=== PATIENT | female | born 1990 | race Two or more races ===

== ENCOUNTER 2019-06-23 23:19 | Inpatient (IN) | payer MEDICAID ==
[2019-06-24 00:30] VITALS: BP 107/73
[2019-06-24] MEDS ORDERED: LORazepam 1 MG TABLET PO PRN (00:30)
[2019-06-24] MEDS ORDERED: HALOPERIDOL 5 MG TABLET PO PRN (00:30)
[2019-06-24] MEDS ORDERED: ZOLPIDEM TARTRATE 10 MG TABLET PO PRN (00:30)
[2019-06-24 08:09] VITALS: BP 108/72
[2019-06-24] MEDS ORDERED: DiphenhydrAMINE HCL 25 MG CAPSULE PO PRN (09:15)
[2019-06-24] MEDS ORDERED: ONDANSETRON HCL 4 MG TABLET PO PRN (09:45)
[2019-06-24] MEDS ORDERED: LOPERAMIDE HCL 2 MG CAPSULE PO PRN (09:45)
[2019-06-24] MEDS ORDERED: GuaiFENesin/D-METHORPHAN [SUGAR-FREE] 200-20MG/10 ML SYRUP UDCUP PO PRN (09:45)
[2019-06-24] MEDS ORDERED: PETROLATUM,WHITE 28 GM JELLY TP PRN (09:45)
[2019-06-24] MEDS ORDERED: DOCUSATE SODIUM 100 MG CAPSULE PO PRN (09:45)
[2019-06-24] MEDS ORDERED: CloNIDine HCL 0.1 MG TABLET PO PRN (09:45)
[2019-06-24] MEDS ORDERED: MAG HYDROX/AL HYDROX/SIMETH ES 30 ML SUSPENSION UDCUP PO PRN (09:45)
[2019-06-24] MEDS ORDERED: NICOTINE 14 MG/24 HOUR PATCH TD PRN (09:45)
[2019-06-24] MEDS ORDERED: ACETAMINOPHEN 325 MG TABLET PO PRN (09:45)
[2019-06-24] MEDS ORDERED: MAGNESIUM HYDROXIDE SUSPENSION 30 ML UDCUP PO PRN (09:45)
[2019-06-24] MEDS ORDERED: ALBUTEROL SULFATE HFA 90 MCG/PUFF 8 GM INHALER IH PRN (09:45)
[2019-06-24] MEDS ORDERED: IBUPROFEN 400 MG TABLET PO PRN (09:45)
== END 2019-06-24 16:00 | disposition home or self-care (01) | DRG 751 ==
LOC: B3A 06-24 00:15
DX: F29 Unspecified psychosis not due to a substance or known physiological condition (principal); K21.9 Gastro-esophageal reflux disease without esophagitis